=== PATIENT | male | born 1970 | race Caucasian/White ===

== ENCOUNTER 2021-10-21 22:32 | Emergency (ER) | payer SELFPAY ==
[~2021-10-21] VITALS: Ht 165.1 cm; Wt 69.0 kg
[2021-10-22] MEDS ORDERED: SULF1TAB48 MT (00:55)
[2021-10-22 01:10] VITALS: BP 107/66
== END 2021-10-22 01:10 | disposition home or self-care (01) ==
LOC: ER 22:32
DX: L03.114 Cellulitis of left upper limb (principal); I10 Essential (primary) hypertension
CPT/HCPCS: 99281; 99283